=== PATIENT | female | born 1950 | race Caucasian/White ===

== ENCOUNTER 2016-12-25 10:02 | Day surgery (SDC) | payer OTHER ==
[~2016-12-25 10:02] MED LIST: ADVIL200 M3 PO; AMITRIPTYLINE H25 M1 PO; ATACAND8 MG; COZAAR100 M1 PO; FISH OIL; FISH OIL 1,0001 CA1 PO; FLUOXETINE HCL40 M1 PO; GLIPIZIDE10 M2 PO; GLUCOPHAGE500 M3 PO; KLONOPIN1 M1 PO; LIPITOR10 M1 PO; MULTIVITAMIN1 TAB PO; VITAMIN C PO
== END 2016-12-25 16:45 ==
LOC: SRG 10:02 → SHSB 10:03 → ORE 15:01 → SHSB 15:35
PROC: 0LN70ZZ Release Right Hand Tendon, Open Approach (ICD-10-PCS; principal; 2016-12-25)
PROC: 0LN80ZZ Release Left Hand Tendon, Open Approach (ICD-10-PCS; 2016-12-25)
DX: M65.331 Trigger finger, right middle finger (principal); M65.342 Trigger finger, left ring finger; I10 Essential (primary) hypertension; E11.9 Type 2 diabetes mellitus without complications; F32.9 Major depressive disorder, single episode, unspecified; E78.5 Hyperlipidemia, unspecified; F51.01 Primary insomnia; Z79.84 Long term (current) use of oral hypoglycemic drugs; Z79.899 Other long term (current) drug therapy; Z88.2 Allergy status to sulfonamides; Z88.8 Allergy status to other drugs, medicaments and biological substances; Z87.891 Personal history of nicotine dependence; Z90.49 Acquired absence of other specified parts of digestive tract; Z98.890 Other specified postprocedural states
CPT/HCPCS: J0690